=== PATIENT | male | born 1985 | race Caucasian/White ===

== ENCOUNTER → 2019-07-11 11:14 | Outpatient (BNVA) | payer SELFPAY | PROVIDERS: Family Provider Nurse Practitioner; PCP Nurse Practitioner; Visit Provider Nurse Practitioner Family | DX: Z72.51 High risk heterosexual behavior (principal); J98.8 Other specified respiratory disorders | CPT/HCPCS: 71046; 87491; 87591 ==

== ENCOUNTER → 2019-08-18 14:59 | Outpatient (BNVA) | payer SELFPAY | PROVIDERS: Family Provider Nurse Practitioner; PCP Nurse Practitioner; Visit Provider Nurse Practitioner Family | DX: M25.562 Pain in left knee (principal); R22.42 Localized swelling, mass and lump, left lower limb | CPT/HCPCS: 85025 ==

== ENCOUNTER → 2020-04-23 10:24 | Outpatient (BNVA) | payer MEDICAID, OTHER, SELFPAY | PROVIDERS: Family Provider Nurse Practitioner; PCP Nurse Practitioner; Visit Provider Nurse Practitioner Family | DX: Z20.828 Contact with and (suspected) exposure to other viral communicable diseases (principal); J98.8 Other specified respiratory disorders | CPT/HCPCS: 87635 ==

== ENCOUNTER 2020-10-06 09:11 | Outpatient (CLI) | payer MEDICAID, SELFPAY ==
--- NOTE | 2020-10-06 09:30 | MR_ITS ---
WS: [id number] MRI LUMBAR SPINE NONCONTRAST TECHNIQUE: Sagittal T1, T2 and STIR imaging. Axial T1 and T2 imaging. CLINICAL INFORMATION: M54.5 - Low back pain COMPARISON: CT FINDINGS: Mild lumbar curve. No acute compression. No high-grade central canal stenosis. Small broad-based cent ral protrusion T12-L1. T12-L1:Shallow central disc protrusion T12-L1 with mild central canal stenosis and effacement of vent ral thecal sac. Foramen are patent. L1-L2: Normal. L2-L3: No significant disc bulging. Spinal canal and foramen are patent. Mild facet arthropathy. L3-L4: No significant disc bulging. Mild facet arthropathy. Spinal canal and foramen are patent. L4-L5: Minimal annular bulging. Mild facet arthropathy. Spinal canal and foramen are patent. L5-S1: Minimal annular bulging. Mild facet arthropathy. Spinal canal and foramen are patent. Visualized pelvic bony structures: Normal. Paravertebral soft tissues: Normal. MR/MR lumbar spine wo con* [id number] IMPRESSION: 1. Mild lumbar curve. No acute compression. No high-grade central canal stenos is. 2. Shallow broad-based central protrusion T12-L1 with mild central canal steno sis and effacement of ventral thecal sac. Foramen are patent. 3. Minimal annular bulging L4-5 with slight effacement of ventral thecal sac. 4. Mild facet arthropathy L3-4 and L4-L5.
== END 2020-10-06 09:12 | disposition home or self-care (01) ==
PROVIDERS: Family Provider Nurse Practitioner; PCP Nurse Practitioner; Visit Provider Nurse Practitioner Family
DX: M47.816 Spondylosis without myelopathy or radiculopathy, lumbar region (principal); M51.26 Other intervertebral disc displacement, lumbar region
CPT/HCPCS: 72148

== ENCOUNTER → 2020-10-29 10:25 | Outpatient (BNVA) | payer MEDICAID, SELFPAY | PROVIDERS: Family Provider Nurse Practitioner; PCP Nurse Practitioner; Referring Provider Dermatology; Visit Provider Orthopaedic Surgery | DX: M54.9 Dorsalgia, unspecified (principal); M48.061 Spinal stenosis, lumbar region without neurogenic claudication | CPT/HCPCS: 72110 ==

== ENCOUNTER → 2020-11-08 09:01 | Outpatient (BNVA) | payer MEDICAID, SELFPAY | PROVIDERS: Family Provider Nurse Practitioner; PCP Nurse Practitioner Family; Referring Provider Orthopaedic Surgery; Visit Provider Anesthesiology Pain Medicine | DX: M54.9 Dorsalgia, unspecified (principal); F17.210 Nicotine dependence, cigarettes, uncomplicated | CPT/HCPCS: 99204 ==

== ENCOUNTER → 2020-11-15 12:31 | Outpatient (BNVA) | payer MEDICAID, SELFPAY | PROVIDERS: Family Provider Nurse Practitioner; PCP Nurse Practitioner Family; Visit Provider Anesthesiology Pain Medicine | DX: M47.816 Spondylosis without myelopathy or radiculopathy, lumbar region (principal); M54.9 Dorsalgia, unspecified; F17.210 Nicotine dependence, cigarettes, uncomplicated | CPT/HCPCS: 64493; 64494; 64495; J1040; J3490 ==

== ENCOUNTER 2020-11-17 06:00 | Outpatient (RCR) | payer MEDICAID, SELFPAY | END 2020-12-01 23:59 | disposition home or self-care (01) | LOC: SPT 06:00 | PROVIDERS: Family Provider Nurse Practitioner; PCP Nurse Practitioner Family; Referring Provider Orthopaedic Surgery; Visit Provider Orthopaedic Surgery | DX: M54.9 Dorsalgia, unspecified (principal); G89.29 Other chronic pain | CPT/HCPCS: 97110; 97162; 99204 ==

== ENCOUNTER → 2022-06-15 10:36 | Outpatient (BNVA) | payer MEDICAID, SELFPAY | PROVIDERS: PCP Nurse Practitioner Family; Visit Provider Nurse Practitioner | DX: I10 Essential (primary) hypertension (principal); R51.9 Headache, unspecified; F41.1 Generalized anxiety disorder; M48.061 Spinal stenosis, lumbar region without neurogenic claudication | CPT/HCPCS: 80053; 80061 ==

== ENCOUNTER 2022-07-02 11:17 | Emergency (ER) | payer MEDICAID, SELFPAY ==
[2022-07-02 11:33] VITALS: BP 120/78; PULSE 87; RESP 14; TEMP 36.4; O2SAT 97
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
[2022-07-02] MEDS: ketorolac 60 mg/2 mL INJ IM (12:06)
[2022-07-02] MEDS: orphenadrine 30 mg/mL Inj 2 mL 60 MG IM (12:06)
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
== END 2022-07-02 13:32 | disposition home or self-care (01) ==
PROVIDERS: Emergency Provider Physician Assistant; PCP Nurse Practitioner Family
DX: M54.9 Dorsalgia, unspecified (principal); V48.5XXA Car driver injured in noncollision transport accident in traffic accident, initial encounter
CPT/HCPCS: 70450; 72040; 72072; 72100; 96372; 99284; J1885; J2360

== ENCOUNTER → 2023-11-07 15:34 | Outpatient (BNVA) | payer MEDICAID, SELFPAY | PROVIDERS: PCP Nurse Practitioner Family; Visit Provider Nurse Practitioner Family | DX: J98.01 Acute bronchospasm (principal); M48.061 Spinal stenosis, lumbar region without neurogenic claudication; F41.1 Generalized anxiety disorder; I10 Essential (primary) hypertension; R51.9 Headache, unspecified; T78.40XA Allergy, unspecified, initial encounter; Z79.899 Other long term (current) drug therapy | CPT/HCPCS: 80053; 80061; 84443; 85025 ==

== ENCOUNTER 2023-11-25 07:34 | Emergency (ER) | payer MEDICAID, SELFPAY ==
--- NOTE | 2023-11-25 07:34 | ECG_ITS ---
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 Measurements Intervals [place] Rate: 76 P: 39 MA: 122 QRS: 73 QRSD: 99 T: 46 QT: 359 QTc: 404 Interpretive Statements SINUS RHYTHM No previous ECG available for comparison Electronically Signed On 11-25-2023 9:56:50 CDT by Herb Villatoro M.D. [email or web address]
[2023-11-25 07:43] VITALS: BP 130/91; PULSE 74; RESP 18; TEMP 36.4; O2SAT 98; BMI 22.7
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
--- NOTE | 2023-11-25 07:53 | ED_ITS ---
HPI - Syncope 2 General: Chief Complaint: Syncope Stated Complaint: SOB, head pain, body tingling, confusion Time Seen by Provider: 11/25/23 07:42 Source: patient Mode of arrival: ambulatory Limitations: no limitations History of Present Illness: 38-year-old male states that yesterday h steffi is feeling very tired he had a syncopal event states that he feels like he is just extremely weak and feels like he just keeps wanting to sleep and passed out. He had some chest pain some shortness of breath denies any severe headaches denies any fever cough denies any worsening proving factors. Associated symptoms: Reports chest pain; Deny abdominal pain, fever(s), headache(s) or nausea Review of Systems 2 Const: Reports: fatigue and malaise; Denies: fever(s), chills, body aches or change in appetite ENMT: Denies: throat pain or dental pain Card: Reports: chest pain and syncope Resp: Reports: dyspnea GI: Denies: abdominal pain, nausea, vomiting or diarrhea : Denies: dysuria Musc: Denies: neck pain or back pain Neuro: Denies: headache(s) PFSH ED 2 PFSH: Medical History Environmental and seasonal allergies Bronchospasm SENG (generalized anxiety disorder) Surgical History History of hernia repair Family History Other Hypertension Denies family history of Diabetes Dementia Cancer Stroke Social History Smoking and tobacco/nicotine status: current every day tobacco/nicotine user cigarettes and smokeless tobacco Second hand smoke exposure: No Alcohol intake: unknown Substance/Drug Use: unknown Adopted: No Caregiver/support person: No Lives independently: Yes Household members: spouse and children Housing: House Marital status: Number of children: 4 service: No Current occupational status: employed Pets and animals: Yes 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 Do you think of yourself as: Straight/Heterosexual Current gender identity: Male Physical Exam 2 Const: COMMON NORMALS: no acute distress, patient oriented x3 and healthy appearing HENMT: COMMON NORMALS: normocephalic and atraumatic HEAD & SCALP: n ormocephalic and atraumatic Neck/C-Spine: COMMON NORMALS: full ROM and supple Chest: COMMONS NORMALS: normal inspection of the chest Resp: COMMON NORMALS: normal respiratory effort, No retractions, No use of accessory muscles and clear to auscultation bilaterally AUSCULTATION: clear to auscultation bilaterally Cardio: COMMON NORMALS: regular rate, regular rhythm and No murmurs present (Cardio) RATE: regular rate RHYTHM: regular rhythm GI: COMMON NORMALS: Normal to inspection, nondistended, normoactive bowel sounds present, Soft to palpation, non-tender and no masses PALPATION: Yes Soft to palpation Extremity: COMMON NORMALS: normal to inspection and full ROM Neuro: COMMON NORMALS: patient oriented x3, moves all extremities and no focal motor deficits Psych: COMMON NORMALS: mental status grossly normal, Normal thought process present and cooperative THOUGHT PROCESS: Normal thought process present Skin: COMMON NORMALS: no rashes or lesions noted and no wounds GENERAL SKIN EXAM: no rashes or lesions noted Course 2 Vital Signs: Vital signs: Vital Signs Temperature 97.6 F 11/25/23 07:43 Pulse Rate 73 11/25/23 09:00 Respiratory Rate 17 11/25/23 08:30 Blood Pressure 134/91 11/25/23 09:00 Pulse Oximetry 99 11/25/23 09:00 Oxygen Delivery Me thod Room Air 11/25/23 09:00 MDM - Syncope Medical Decision Making Patient presents here with generalized weakness he is also had syncopal event he is well-appearing here his vital signs blood work imaging is all normal no signs of acute cause he stable for discharge follow-up with PCP return if worsening he understands agrees to plan Medical Records I reviewed the patient's medical records. Lab Data I reviewed the patient's lab results. 11/25/23 07:48 11/25/23 07:48 Radiology Impressions Chest X-Ray 11/25/23 07:46 IMPRESSION: Unremarkable chest. Head CT 11/25/23 07:46 IMPRESSION: No evidence of acute intracranial abnormality. No acute hemorrhage. No evidence of acute infarct or mass. Laboratory Results WBC 7.44 10^3/uL (3.29-11.43) 11/25/23 07:48 RBC 5.19 10^6/uL (3.85-5.65) 11/25/23 07:48 Hgb 16.10 g/dL (11.27-16.99) 11/25/23 07:48 Hct 47.4 % (37-53) 11/25/23 07:48 MCV 91.3 fl (82-101) 11/25/23 07:48 MCH 31.0 pg (27-33) 11/25/23 07:48 MCHC 34.0 g/dL (30-55) 11/25/23 07:48 RDW 12.3 % (12.1-15.1) 11/25/23 07:48 Plt Count 261 10^3/cmm (157-399) 11/25/23 07:48 MPV 10.3 fL (7.4-10.4) 11/25/23 07:48 Neut % (Auto) 53.9 % 11/25/23 07:48 Lymph % (Auto) 33.1 % 11/25/23 07:48 [place] % (Auto) 7.8 % 11/25/23 07:48 Eos % (Auto) 3.8 % 11/25/23 07:48 Baso % (Auto) 1.1 % 11/25/23 07:48 Neut # (Auto) 4.02 10^3/uL (1.8-7.7) 11/25/23 07:48 Lymph # (Auto) 2.5 10^3/uL (0.8-4.8) 11/25/23 07:48 [place] # (Auto) 0.6 10^3/uL (0.2-0.9) 11/25/23 07:48 Eos # (Auto) 0.3 10^3/uL (0.0-0.8) 11/25/23 07:48 Baso # (Auto) 0.1 10^3/uL (0.0-0.1) 11/25/23 07:48 Nucleated RBC % (auto) 0 % 11/25/23 07:48 Nucleated RBCs # 0.0 /100WBC 11/25/23 07:48 D-Dimer 0.28 ug/mLFEU (0-0.59) 11/25/23 07:48 Sodium 141 mmol/L (136-145) 11/25/23 07:48 Potassium 4.2 mmol/L (3.5-5.1) 11/25/23 07:48 Chloride 105 mmol/L (98-107) 11/25/23 07:48 Carbon Dioxide 27 mmol/L (22-29) 11/25/23 07:48 Anion Gap 13.2 (5-19) 11/25/23 07:48 BUN 8 mg/dL (6-20) 11/25/23 07:48 Creatinine 0.8 mg/dL (0.7-1.2) 11/25/23 07:48 GFR Calculation 107.6 mL/min (90-130) 11/25/23 07:48 Glucose 96 mg/dL (65-115) 11/25/23 07:48 POC Glucose 106 mg/dL (70-110) 11/25/23 07:58 Calculated Osmolality 290 mOsm/kg (285-295) 11/25/23 07:48 Calcium 9.5 mg/dL (8.5-10.5) 11/25/23 07:48 Total Bilirubin 0.2 mg/dL (0.15-1.2) 11/25/23 07:48 AST 14 U/L (0-40) 11/25/23 07:48 ALT 13 U/L (0-41) 11/25/23 07:48 Alkaline Phosphatase 117 U/L (40-130) 11/25/23 07:48 Troponin T Baseline 8 ng/L (0-15) 11/25/23 07:48 Total Protein 6.8 g/dL (6.6-8.7) 11/25/23 07:48 Albumin 4.4 g/dL (3.5-5.2) 11/25/23 07:48 Globulin 2.4 g/dL (1.3-4.6) 11/25/23 07:48 TSH 2.27 uIU/mL (0.27-4.20) 11/25/23 07:48 Urine Color Yellow (Yellow) 11/25/23 08:07 Urine Appearance Clear (CLEAR) 11/25/23 08:07 Urine pH 7 (5-7) 11/25/23 08:07 Ur Specific [place] 1.015 (1.005-1.030) 11/25/23 08:07 Urine Protein Neg (Negative) 11/25/23 08:07 Urine Glucose (UA) Norm (Normal) 11/25/23 08:07 Urine Ketones Negative (Negative) 11/25/23 08:07 Urine Blood Neg (Negative) 11/25/23 08:07 Urine Nitrate Negative (Negative) 11/25/23 08:07 Urine Bilirubin Neg (Negative) 11/25/23 08:07 Urine Urobilinogen Norm mg/dL (Negative) 11/25/23 08:07 Ur Leukocyte Esterase Negative (Negative) 11/25/23 08:07 All radiology interpretation(s) finalized by discharge EKG Data EKG 1: I personally reviewed and interpreted this EKG as follows: EKG interpretation date: 11/25/23 EKG interpretation time: 07:34 Interpretation: nsr hr [address] or t wave abnormalitie sqrs 99 qtc 389 Discharge Plan Discharge Patient Disposition: Home Clinical Impression: Weakness, Syncope Condition: Stable Prescriptions: No Action cyclobenzaprine 10 mg tablet 10 mg PO BID PRN (Reason: muscle spasm) Qty: 60 5RF albuterol sulfate [ProAir HFA] 90 mcg/actuation HFA aerosol inhaler 2 puff inhalation QID PRN (Reason: shortness of breath or wheezing) 30 Days Qty: 6.7 5RF zonisamide 50 mg capsule 50 mg PO BID Qty: 60 5RF venlafaxine [Effexor XR] 75 mg capsule,extended release 24hr 75 mg PO DAILY Qty: 30 5RF metoprolol succinate 25 mg tablet extended release 24 hr 25 mg PO .at bedtime Qty: 30 5RF epinephrine [EpiPen] 0.3 mg/0.3 mL auto-injector 0.3 mg IM Q10M PRN (Reason: anaphylaxis) Qty: 1 0RF Rx Instructions: for 2 doses ibuprofen 800 mg tablet 800 mg PO Q8H PRN (Reason: pain) Qty: 20 0RF Discharge Orders: Discharge ED (Routine); Ordered 11/25/23 Ordered By: Gurvinder Cooper Referrals: Cande Esqueda FNP-C [Primary Care Provider] - Discharge Diet: Advance as tolerated Discharge Activity: Resume usual activity Patient Instructions: Weakness (ED) Coding Level of Care Code ED Patient Care Assistant for Chg Fwd
[2023-11-25 07:54] LABS: Basophils # 0.1 10^3/uL (0.0-0.1); Basophils % 1.1 %; Eosinophils # 0.3 10^3/uL (0.0-0.8); Eosinophils % 3.8 %; Hematocrit 47.4 % (37-53); Lymphocytes # 2.5 10^3/uL (0.8-4.8); Lymphocytes % 33.1 %; Mean Corpuscular Volume 91.3 fl (82-101); Mean Platelet Volume 10.3 fL (7.4-10.4); Monocytes # 0.6 10^3/uL (0.2-0.9); Monocytes % 7.8 %; Neutrophils # 4.02 10^3/uL (1.8-7.7); Neutrophils % 53.9 %; Nucleated Red Blood Cells % 0 %; Platelet Count 261 10^3/cmm (157-399); Red Blood Count 5.19 10^6/uL (3.85-5.65); Red Cell Distribution Width 12.3 % (12.1-15.1); White Blood Count 7.44 10^3/uL (3.29-11.43)
[2023-11-25 08:02] LABS: Glucose Point of Care 106 mg/dL (70-110)
[2023-11-25] MEDS: sodium chloride 0.9% 1,000 ML 999 ML IV (08:06)
[2023-11-25 08:12] LABS: D Dimer 0.28 ug/mLFEU (0-0.59)
[2023-11-25 08:13] LABS: Add Urine Microscopic? NO; Charge for UA Resulting for Rev
[2023-11-25 08:16] LABS: Troponin(5th) Baseline 8 ng/L (0-15)
[2023-11-25 08:26] LABS: Alanine Aminotransferase 13 U/L (0-41); Albumin Level 4.4 g/dL (3.5-5.2); Alkaline Phosphatase 117 U/L (40-130); Aspartate Amino Transferase 14 U/L (0-40); Blood Urea Nitrogen 8 mg/dL (6-20); Calcium 9.5 mg/dL (8.5-10.5); Carbon Dioxide 27 mmol/L (22-29); Chloride 105 mmol/L (98-107); Creatinine Clr Calc Pharmacy 115.6738; Globulin 2.4 g/dL (1.3-4.6); Glomerular Filtration Rate 107.6 mL/min (90-130); Glucose 96 mg/dL (65-115); Osmolality Calculated 290 mOsm/kg (285-295); Sodium 141 mmol/L (136-145); Thyroid Stimulating Hormone 2.27 uIU/mL (0.27-4.20); Total Bilirubin 0.2 mg/dL (0.15-1.2); Total Protein 6.8 g/dL (6.6-8.7)
[2023-11-25 08:30] VITALS: BP 147/93; PULSE 76; RESP 17; O2SAT 100
[2023-11-25 08:46] LABS: Bilirubin Urine Neg (Negative); Blood Urine Neg (Negative); Glucose Urine UA Norm (Normal); Ketones Urine Negative (Negative); Leukocyte Esterase Urine Negative (Negative); Nitrate Urine Negative (Negative); Protein Urine Neg (Negative); Specific Gravity, Urine 1.015 (1.005-1.030); Urine Appearance Clear (CLEAR); Urine Color Yellow (Yellow); Urobilinogen Urine Norm (Negative); pH Urine 7 (5-7)
[2023-11-25 09:00] VITALS: BP 134/91; PULSE 73; O2SAT 99
[2023-11-25 09:16] LABS: Anion Gap 13.2 (5-19); Potassium 4.2 mmol/L (3.5-5.1)
[2023-11-25 09:31] VITALS: BP 124/83; PULSE 85; RESP 17; O2SAT 100
== END 2023-11-25 09:32 | disposition home or self-care (01) ==
PROVIDERS: Emergency Provider Emergency Medicine; PCP Nurse Practitioner Family
DX: R55 Syncope and collapse (principal); R53.1 Weakness; F17.220 Nicotine dependence, chewing tobacco, uncomplicated
CPT/HCPCS: 36416; 70450; 71045; 80053; 81003; 82962; 84443; 84484; 85025; 85378; 93005; 96360; 99285; J7030

== ENCOUNTER 2024-03-10 17:43 | Emergency (ER) | payer MEDICAID, SELFPAY ==
[2024-03-10 17:50] VITALS: BP 134/87; PULSE 98; RESP 18; TEMP 36.5; O2SAT 100; BMI 22.7
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
--- NOTE | 2024-03-10 18:40 | ED_ITS ---
HPI - Extremity Problem General: Chief complaint: Extremity Injury, Lower Stated complaint: Rt Ankle Injury Time Seen by Provider: 03/10/24 18:00 Source: patient Mode of arrival: wheelchair Limitations: no limitations History of Present Illness: Patient is a 39-year-old male who presents to the emergency department complaining of right ankle injury and pain since noon today. He states he was walking and suddenly had an inversion ankle injury, reports history of fracture of this ankle. Notes that he has not been able to walk due to the pain, has not taken anything for pain at this time. Reports that the pain radiates down into his foot. No other injuries reported. MD Complaint: joint pain Onset (ago): hour(s) Pain Consistency: constant Location: right and lower extremity (Ankle) Radiation: distal Exacerbating factors: weight bearing Associated symptoms: Deny chest pain, fever(s) or rash Related Data Previous Rx's Medication Instructions Recorded ibuprofen 800 mg tablet 800 mg PO Q8H PRN pain #20 tabs 07/02/22 albuterol sulfate 90 mcg/actuation 2 puff inhalation QID PRN 11/07/23 aerosol inhaler (ProAir HFA) shortness of breath or wheezing 30 days #6.7 grams cyclobenzaprine 10 mg tablet 10 mg PO BID PRN muscle spasm #60 11/07/23 tabs epinephrine 0.3 mg/0.3 mL 0.3 mg (0.3 mL) IM Q10M PRN 11/07/23 injection, auto-injector (EpiPen) anaphylaxis #1 ea metoprolol succinate 25 mg 25 mg PO .at bedtime #30 tabs 11/07/23 tablet,extended release 24 hr venlafaxine 75 mg capsule,extended 75 mg PO DAILY #30 caps 11/07/23 release 24 hr (Effexor XR) zonisamide 50 mg capsule 50 mg PO BID #60 caps 11/07/23 Allergies Allergy/AdvReac Type Severity Reaction Status Date / Time Tetanus Vaccines and Toxoid Allergy Severe ALGY-Swell Verified 03/10/24 17:54 Lip/Tongue/Throat Review of Systems General: Reports: 10 or more systems reviewed and unremarkable except in HPI and below Const: Denies: fever(s) or chills Card: Denies: chest pain Resp: Denies: dyspnea or productive cough GI: Denies: abdominal pain, nausea, vomiting or diarrhea : Denies: flank pain Musc: Reports: extremity pain (Right foot), joint pain (Right ankle), joint swelling (Right ankle) and limited range of motion; Denies: neck pain, back pain, extremity swelling, joint redness, joint warmth or muscle weakness Skin/Breast: Denies: rash Neuro: Denies: headache(s), numbness in extremities or weakness in extremities PFSH ED PFSH: Medical History Environmental and seasonal allergies Bronchospasm SENG (generalized anxiety disorder) Surgical History History of hernia repair Family History Other Hypertension Denies family history of Diabetes Dementia Cancer Stroke Social History Smoking and tobacco/nicotine status: current every day tobacco/nicotine user cigarettes and smokeless tobacco Second hand smoke exposure: No Alcohol intake: unknown Substance/Drug Use: unknown Adopted: No Caregiver/support person: No Lives independently: Yes Household members: spouse and children Housing: House Marital status: Number of children: 4 service: No Current occupational status: employed Pets and animals: Yes 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 Do you think of yourself as: Straight/Heterosexual Current gender identity: Male Physical Exam Const: COMMON NORMALS: no acute distress, patient oriented x3, no limitations, healthy appearing, alert and well nourished HENMT: COMMON NORMALS: normocephalic and atraumatic HEAD & SCALP: normocephalic and atraumatic Neck/C-Spine: COMMON NORMALS: full ROM, supple and no meningeal signs Resp: COMMON NORMALS: normal respiratory effort, No use of accessory muscles and clear to auscultation bilaterally AUSCULTATION: clear to auscultation bilaterally Cardio: COMMON NORMALS: regular rate and regular rhythm RATE: regular rate RHYTHM: regular rhythm Extremity: NARRATIVE EXTREMITY EXAM: Swelling noted to lateral malleolus of right foot. This area is tender to palpation, he endorses tenderness to palpation to the dorsal right foot as well. Can move his right foot without complaints. Distal sensations are intact. No obvious deformity. Neuro: COMMON NORMALS: patient oriented x3, moves all extremities, no focal motor deficits and no sensory deficits noted SENSORIUM/ORIENTATION: Yes alert MENINGEAL SIGNS: Yes no meningeal signs Skin: COMMON NORMALS: no rashes or lesions noted GENERAL SKIN EXAM: no rashes or lesions noted Course Vital Signs: Vital signs: Vital Signs Temperature 97.7 F 03/10/24 17:50 Pulse Rate 94 03/10/24 20:09 Respiratory Rate 16 03/10/24 20:09 Blood Pressure 131/90 03/10/24 20:09 Pulse Oximetry 94 03/10/24 20:09 Oxygen Delivery Me thod Room Air 03/10/24 17:50 MDM - Extremity (Nontraumatic) Medical Decision Making Patient presented for right ankle and foot pain after inversion injury earlier today. X-rays did not reveal any acute fracture, did comment on the swelling to the lateral aspect of the malleolus, where patient's primary pain was. Will treat patient as an acute ankle sprain with RICE therapy, and he is encouraged to follow-up with primary care with any persistence of pain. Lab Data Radiology Impressions Ankle X-Ray 03/10/24 18:00 IMPRESSION: Soft tissue swelling laterally. No fracture or acute osseous abnormality. Foot X-Ray 03/10/24 18:35 IMPRESSION: No fracture or acute osseous abnormality. All radiology interpretation(s) finalized by discharge Discharge Plan Discharge Patient Disposition: Home Clinical Impression: Right ankle sprain Qualifiers: Encounter type: initial encounter Involved ligament of ankle: unspecified ligament Qualified Code(s): S93.401A - Sprain of unspecified ligament of right ankle, initial encounter Condition: Stable Prescriptions: No Action cyclobenzaprine 10 mg tablet 10 mg PO BID PRN (Reason: muscle spasm) Qty: 60 5RF albuterol sulfate [ProAir HFA] 90 mcg/actuation HFA aerosol inhaler 2 puff inhalation QID PRN (Reason: shortness of breath or wheezing) 30 Days Qty: 6.7 5RF zonisamide 50 mg capsule 50 mg PO BID Qty: 60 5RF venlafaxine [Effexor XR] 75 mg capsule,extended release 24hr 75 mg PO DAILY Qty: 30 5RF metoprolol succinate 25 mg tablet extended release 24 hr 25 mg PO .at bedtime Qty: 30 5RF epinephrine [EpiPen] 0.3 mg/0.3 mL auto-injector 0.3 mg IM Q10M PRN (Reason: anaphylaxis) Qty: 1 0RF Rx Instructions: for 2 doses ibuprofen 800 mg tablet 800 mg PO Q8H PRN (Reason: pain) Qty: 20 0RF Discharge Orders: Discharge ED (Routine); Ordered 03/10/24 Ordered By: Calvin Guzman Referrals: Cande Esqueda FNP-C [Primary Care Provider] - Discharge Diet: Usual diet Discharge Activity: Increase activity as tolerated Patient Instructions: Ankle Sprain (ED) Activity Restrictions/Additional Instructions: Rest, ice, compression, and elevation as discussed. Alternate Tylenol and ibuprofen. Increase your weightbearing as tolerated, gentle range of motion exercises. Follow-up with your primary care provider as needed. Stand Alone Forms: Work/School Release Coding Level of Care Code ED Compliance Nurse for Bruce Cullen
[2024-03-10] MEDS: ketorolac 60 mg/2 mL INJ IM (18:52)
[2024-03-10 20:09] VITALS: BP 131/90; PULSE 94; RESP 16; O2SAT 94
== END 2024-03-10 20:10 | disposition home or self-care (01) ==
PROVIDERS: Emergency Provider Physician Assistant; PCP Nurse Practitioner Family
DX: S93.401A Sprain of unspecified ligament of right ankle, initial encounter (principal); F17.210 Nicotine dependence, cigarettes, uncomplicated; F17.220 Nicotine dependence, chewing tobacco, uncomplicated; X50.1XXA Overexertion from prolonged static or awkward postures, initial encounter
CPT/HCPCS: 73610; 73630; 96372; 99284; E0114; J1885

== ENCOUNTER 2024-03-13 12:05 | Outpatient (CLI) | payer MEDICAID, SELFPAY ==
--- NOTE | 2024-03-13 12:08 | XR_ITS ---
WS: [id number] XR ankle RT min 3V* [id number] REASON FOR EXAM: S93.401A - Sprain of unspecified ligament of right ankle,... FINDINGS: Soft tissue swelling around the ankle joint. No acute fractures identified. The joint spaces of the right ankle are intact and well preserved. XR/XR ankle RT min 3V* [id number] IMPRESSION: Soft tissue swelling with no acute bone or joint abnormality.
== END 2024-03-13 12:06 | disposition home or self-care (01) ==
LOC: RAD 12:06
PROVIDERS: PCP Nurse Practitioner Family; Visit Provider Clinical Nurse Specialist Adult Health
DX: M70.871 Other soft tissue disorders related to use, overuse and pressure, right ankle and foot (principal)
CPT/HCPCS: 73610

== ENCOUNTER 2024-06-17 15:31 | Inpatient (IN) | payer MEDICAID, SELFPAY ==
[2024-06-17 15:40] VITALS: BP 154/105; PULSE 99; RESP 16; TEMP 36.8; O2SAT 98; BMI 23.5
--- NOTE | 2024-06-17 15:44 | W.ED.PSYCHS ---
HPI - Psych General: Chief Complaint: Psychiatric Symptoms Stated Complaint: suicidal Time Seen by Provider: 06/17/24 15:32 Source: patient Mode of arrival: ambulatory Limitations: no limitations History of Present Illness: 39-year-old male states that he has been having increasing depression he states he has been extremely depressed over the last week states he is having suicidal thoughts now he states that he is no longer wants to live and is scared that he is actually going to harm himself. No previous admissions in the past. Associated symptoms: Reports depression and suicidal ideation Related Data Previous Rx's Medication Instructions Recorded epinephrine 0.3 mg/0.3 mL 0.3 mg (0.3 mL) IM Q10M PRN 11/07/23 injection, auto-injector (EpiPen) anaphylaxis #1 ea venlafaxine 75 mg capsule,extended 75 mg PO DAILY #30 caps 06/09/24 release 24 hr (Effexor XR) Allergies Allergy/AdvReac Type Severity Reaction Status Date / Time Tetanus Vaccines and Toxoid Allergy Severe ALGY-Swell Verified 06/09/24 13:57 Lip/Tongue/Throat Review of Systems Const: Denies: fever(s), chills, body aches or change in appetite ENMT: Denies: throat pain or dental pain Card: Denies: chest pain Resp: Denies: dyspnea GI: Denies: abdominal pain, nausea, vomiting or diarrhea Musc: Denies: neck pain or back pain Skin/Breast: Denies: rash Neuro: Denies: headache(s) Psych: Reports: depression and suicidal ideation [facility] ED PFSH: Medical History Environmental and seasonal allergies Bronchospasm SENG (generalized anxiety disorder) Surgical History History of hernia repair Family History Other Hypertension Denies family history of Diabetes Dementia Cancer Stroke Social History Smoking and tobacco/nicotine status: current every day tobacco/nicotine user cigarettes and smokeless tobacco Second hand smoke exposure: No Alcohol intake: unknown Substance/Drug Use: unknown Adopted: No Caregiver/support person: No Lives independently: Yes Household members: spouse and children Housing: House Marital status: Number of children: 4 service: No Current occupational status: employed Pets and animals: Yes 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 Do you think of yourself as: Straight/Heterosexual Current gender identity: Male Physical Exam Const: COMMON NORMALS: no acute distress, patient oriented x3 and healthy appearing HENMT: COMMON NORMALS: normocephalic and atraumatic HEAD & SCALP: normocephalic and atraumatic Eye: COMMON NORMALS: conjunctivae normal CONJUNCTIVA: Yes conjunctivae normal Neck/C-Spine: COMMON NORMALS: full ROM and supple Chest: COMMONS NORMALS: normal inspection of the chest Resp: COMMON NORMALS: normal respiratory effort Cardio: COMMON NORMALS: regular rate, regular rhythm and No murmurs present (Cardio) RATE: regular rate RHYTHM: regular rhythm Extremity: COMMON NORMALS: normal to inspection and full ROM Neuro: COMMON NORMALS: patient oriented x3, moves all extremities and no focal motor deficits Psych: COMMON NORMALS: mental status grossly normal, Normal thought process present and cooperative MOOD & AFFECT: Yes depressed mood THOUGHT PROCESS: Normal thought process present THOUGHT CONTENT: Yes Suicidality present Skin: COMMON NORMALS: no rashes or lesions noted and no wounds GENERAL SKIN EXAM: no rashes or lesions noted Course Vital Signs: Vital signs: Vital Signs Temperature 98.2 F 06/17/24 15:40 Pulse Rate 99 06/17/24 15:40 Respiratory Rate 16 06/17/24 15:40 Blood Pressure 154/105 06/17/24 15:40 Pulse Oximetry 98 06/17/24 15:40 Oxygen Delivery Me thod Room Air 06/17/24 15:40 MDM - Psych Medical Decision Making Patient presents here with suicidal ideations he is medically cleared I spoke to psychiatrist will admit at this time. Medical Records I reviewed the patient's medical records. Lab Data I reviewed the patient's lab results. 06/17/24 16:00 06/17/24 16:00 Laboratory Results WBC 10.17 10^3/uL (3.29-11.43) 06/17/24 16:00 RBC 5.49 10^6/uL (3.85-5.65) 06/17/24 16:00 Hgb 16.80 g/dL (11.27-16.99) 06/17/24 16:00 Hct 50.7 % (37-53) 06/17/24 16:00 MCV 92.3 fl (82-101) 06/17/24 16:00 MCH 30.6 pg (27-33) 06/17/24 16:00 MCHC 33.1 g/dL (30-55) 06/17/24 16:00 RDW 12.3 % (12.1-15.1) 06/17/24 16:00 Plt Count 292 10^3/cmm (157-399) 06/17/24 16:00 MPV 10.3 fL (7.4-10.4) 06/17/24 16:00 Neut % (Auto) 70.2 % 06/17/24 16:00 Lymph % (Auto) 20.9 % 06/17/24 16:00 [place] % (Auto) 5.5 % 06/17/24 16:00 Eos % (Auto) 2.0 % 06/17/24 16:00 Baso % (Auto) 1.1 % 06/17/24 16:00 Neut # (Auto) 7.14 10^3/uL (1.8-7.7) 06/17/24 16:00 Lymph # (Auto) 2.1 10^3/uL (0.8-4.8) 06/17/24 16:00 [place] # (Auto) 0.6 10^3/uL (0.2-0.9) 06/17/24 16:00 Eos # (Auto) 0.2 10^3/uL (0.0-0.8) 06/17/24 16:00 Baso # (Auto) 0.1 10^3/uL (0.0-0.1) 06/17/24 16:00 Nucleated RBC % (auto) 0 % 06/17/24 16:00 Nucleated RBCs # 0.0 /100WBC 06/17/24 16:00 Urine Opiates Screen Negative ng/mL (Negative) 06/17/24 15:47 Ur Barbiturates Screen Negative ng/mL (Negative) 06/17/24 15:47 Ur Phencyclidine Scrn Negative ng/mL (Negative) 06/17/24 15:47 Ur Amphetamines Screen Positive ng/mL (Negative) H 01/14/25 15:47 U Benzodiazepines Scrn Negative ng/mL (Negative) 06/17/24 15:47 Urine Cocaine Screen Negative ng/mL (Negative) 06/17/24 15:47 U Marijuana (THC) Screen Negative ng/mL (Negative) 06/17/24 15:47 No radiology studies performed this visit Discharge Plan Discharge Patient Disposition: Admitted As Inpatient Admit Provider: Forrest Chicas Clinical Impression: Suicidal ideation Condition: Stable Coding Level of Care Code ED Dam Operator for Bruce Cullen
[2024-06-17 16:00] LABS: Amphetamines Screen Urine Positive (Negative); Barbiturates Screen Urine Negative (Negative); Benzodiazepines Screen Urine Negative (Negative); Cocaine Screen Urine Negative (Negative); Opiate Screen Urine Negative (Negative); PCP Screen Urine Negative (Negative); THC Screen Urine Negative (Negative)
[2024-06-17 16:25] LABS: Basophils # 0.1 10^3/uL (0.0-0.1); Basophils % 1.1 %; Eosinophils # 0.2 10^3/uL (0.0-0.8); Hematocrit 50.7 % (37-53); Lymphocytes # 2.1 10^3/uL (0.8-4.8); Lymphocytes % 20.9 %; Mean Corpuscular HGB Conc 33.1 g/dL (30-55); Mean Corpuscular Hemoglobin 30.6 pg (27-33); Mean Corpuscular Volume 92.3 fl (82-101); Mean Platelet Volume 10.3 fL (7.4-10.4); Monocytes # 0.6 10^3/uL (0.2-0.9); Monocytes % 5.5 %; Neutrophils # 7.14 10^3/uL (1.8-7.7); Neutrophils % 70.2 %; Nucleated Red Blood Cells % 0 %; Platelet Count 292 10^3/cmm (157-399); Red Blood Count 5.49 10^6/uL (3.85-5.65); Red Cell Distribution Width 12.3 % (12.1-15.1); White Blood Count 10.17 10^3/uL (3.29-11.43)
[2024-06-17 16:44] LABS: Alanine Aminotransferase 15 U/L (0-41); Albumin Level 4.6 g/dL (3.5-5.2); Alkaline Phosphatase 123 U/L (40-130); Anion Gap 12.7 (5-19); Aspartate Amino Transferase 15 U/L (0-40); Blood Urea Nitrogen 10 mg/dL (6-20); Calcium 9.6 mg/dL (8.5-10.5); Carbon Dioxide 28 mmol/L (22-29); Chloride 104 mmol/L (98-107); Creatinine Clr Calc Pharmacy 116.1035; Globulin 2.8 g/dL (1.3-4.6); Glomerular Filtration Rate 107.1 mL/min (90-130); Glucose 72 mg/dL (65-115); Osmolality Calculated 290 mOsm/kg (285-295); Potassium 3.7 mmol/L (3.5-5.1); Sodium 141 mmol/L (136-145); Total Bilirubin 0.3 mg/dL (0.15-1.2); Total Protein 7.4 g/dL (6.6-8.7)
[2024-06-17 16:45] LABS: Acetaminophen < 5.0 ug/mL (10-30); Alcohol Level < 10 mg/dL (0-10); Salicylate < 0.3 mg/dL (3-10)
[2024-06-17 16:54] VITALS: BP 132/93; PULSE 98; O2SAT 98
[2024-06-17 17:05] VITALS: BP 134/84; PULSE 106; RESP 16; TEMP 36.3; O2SAT 99
[2024-06-17] MEDS: nicotine 2 mg Gum BUCCAL (18:41)
--- NOTE | 2024-06-17 18:50 | PC.NURSE ---
Patient is a former alcoholic. Patient was able to quit on his own June 08, 2023. Patient's father in 2023, his mother figure also last year. Patient reports fleeting thoughts of what's the point . Patient says that he is more agitated and angry over little things, and this is not his normal behavior. Patient is seeking assistance for depression, anxiety, and anger.
[2024-06-17 19:26] VITALS: BP 130/96; PULSE 74; RESP 18; TEMP 36.4; O2SAT 98
[2024-06-17] MEDS: hyDROXYzine 25 mg Capsule 50 MG PO (20:36)
[2024-06-17] MEDS: trazodone 50 mg Tablet PO (20:36)
[2024-06-18 06:00] VITALS: BP 120/81; PULSE 99; RESP 18; TEMP 36.4; O2SAT 99
[2024-06-18] MEDS: hyDROXYzine 25 mg Capsule 50 MG PO ×2 (08:59→21:40)
[2024-06-18] MEDS: nicotine 4 mg lozenge MUCOUS MEM (08:59)
[2024-06-18] MEDS: nicotine 2 mg Gum BUCCAL (12:39)
[2024-06-18 14:00] VITALS: BP 133/83; PULSE 74; RESP 18; TEMP 36.7; O2SAT 98
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
[2024-06-18] MEDS: OLANZapine 5 mg ODT PO (17:43)
--- NOTE | 2024-06-18 18:46 | PC.NURSE ---
Zyprexa Patient pacing in his room, wringing his hands. Patient reports anxiety. This nurse administered zyprexa 5mg ODT.
[2024-06-18] MEDS: CELEcoxib 100 mg Capsule PO (18:55)
[2024-06-18 21:23] VITALS: BP 104/61; PULSE 78; RESP 16; TEMP 36.3; O2SAT 98
[2024-06-18] MEDS: trazodone 100 mg Tablet 50 MG PO (21:41)
[2024-06-19 06:00] VITALS: BP 97/58; PULSE 95; RESP 17; TEMP 36.6; O2SAT 97
[2024-06-19] MEDS: nicotine 2 mg Gum BUCCAL (07:46)
[2024-06-19] MEDS: hyDROXYzine 25 mg Capsule 50 MG PO ×2 (07:47→20:45)
[2024-06-19] MEDS: fluoxetine 20 mg Capsule PO (07:48)
[2024-06-19] MEDS: CELEcoxib 100 mg Capsule PO ×2 (07:48→17:33)
[2024-06-19] MEDS: nicotine 4 mg lozenge MUCOUS MEM ×4 (11:50→20:45)
[2024-06-19 14:00] VITALS: BP 122/81; PULSE 76; RESP 16; TEMP 36.4; O2SAT 100
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
[2024-06-19 20:00] VITALS: BP 104/62; PULSE 86; RESP 18; TEMP 36.4; O2SAT 97
[2024-06-19] MEDS: trazodone 100 mg Tablet PO (20:45)
[2024-06-19 22:00] VITALS: BP 104/62; PULSE 86; RESP 18; TEMP 36.4; O2SAT 97
[2024-06-20 06:00] VITALS: BP 121/78; PULSE 63; RESP 19; TEMP 36.7; O2SAT 98
[2024-06-20] MEDS: nicotine 4 mg lozenge MUCOUS MEM ×4 (06:19→13:11)
[2024-06-20] MEDS: fluoxetine 20 mg Capsule PO (07:49)
[2024-06-20] MEDS: CELEcoxib 100 mg Capsule PO ×2 (07:49→21:39)
[2024-06-20] MEDS: hyDROXYzine 25 mg Capsule 50 MG PO ×3 (07:49→21:39)
[2024-06-20] MEDS: OLANZapine 5 mg ODT PO (11:11)
[2024-06-20 14:00] VITALS: BP 121/78; PULSE 80; RESP 18; TEMP 36.6; O2SAT 98
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
[2024-06-20] MEDS: prazosin 1 mg Capsule 2 MG PO (21:37)
[2024-06-20] MEDS: trazodone 50 mg Tablet PO (21:39)
[2024-06-20 21:41] VITALS: BP 103/59; PULSE 80; RESP 18; TEMP 36.8; O2SAT 95
[2024-06-21 06:00] VITALS: BP 128/75; PULSE 100; RESP 16; TEMP 36.7; O2SAT 97
[2024-06-21] MEDS: nicotine 4 mg lozenge MUCOUS MEM ×4 (06:08→14:06)
[2024-06-21] MEDS: fluoxetine 20 mg Capsule PO (08:18)
[2024-06-21] MEDS: CELEcoxib 100 mg Capsule PO (08:19)
[2024-06-21] MEDS: hyDROXYzine 25 mg Capsule 50 MG PO (08:19)
--- NOTE | 2024-06-21 08:24 | PC.NURSE ---
IN ROOM. DENIES PAIN. DENIES SI/HI AND AHV AT THIS TIME. RATES ANXIETY 4/10, VISTARIL 50 MG GIVEN ORDERED FOR ANXIETY. RATES DEPRESSION 4/10. REPORTS HE ONLY WOKE UP ONE TIME LAST NIGHT AND HAD NO NIGHTMARES. DEPRESSED AND ANXIOUS MOOD IS NOTED. AFFECT IS OBSERVED TO BE FLAT. SUPPORT VOICED.
[2024-06-21 13:31] VITALS: BP 126/82; PULSE 98; RESP 18; TEMP 36.5; O2SAT 98
[2024-06-21] MEDS: OLANZapine 5 mg ODT PO (14:06)
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
[2024-06-21 14:58] VITALS: BP 126/82; PULSE 98; RESP 18; TEMP 36.5; O2SAT 98
== END 2024-06-21 16:00 | disposition home or self-care (01) | DRG 885 ==
LOC: ER 16:11 → NP 16:19
PROVIDERS: Admitting Provider Psychiatry & Neurology Psychiatry; Emergency Provider Emergency Medicine; PCP Nurse Practitioner Family; Visit Provider Psychiatry & Neurology Psychiatry
DX: F32.2 Major depressive disorder, single episode, severe without psychotic features (principal); R45.851 Suicidal ideations; F43.10 Post-traumatic stress disorder, unspecified; F17.210 Nicotine dependence, cigarettes, uncomplicated; F17.220 Nicotine dependence, chewing tobacco, uncomplicated; Z62.810 Personal history of physical and sexual abuse in childhood; F41.1 Generalized anxiety disorder
CPT/HCPCS: 36415; 80053; 80306; 80307; 85025; 97150; 97165; 99285